=== PATIENT | female | born 1965 | race Hispanic/Latino ===

== ENCOUNTER 2017-10-30 10:50 | Outpatient (CLI) | payer BC | END 2017-10-30 10:51 | disposition home or self-care (01) | LOC: BICMAMMO 10:50 | PROVIDERS: ATTEND Family Medicine | DX: Z12.31 Encounter for screening mammogram for malignant neoplasm of breast (principal); Z78.0 Asymptomatic menopausal state; Z90.710 Acquired absence of both cervix and uterus | CPT/HCPCS: 77063; 77067 ==

== ENCOUNTER 2017-10-30 11:22 | Outpatient (CLI) | payer BC | END 2017-10-30 11:23 | disposition home or self-care (01) | LOC: BICRAD 11:22 | PROVIDERS: ATTEND Family Medicine | DX: M54.2 Cervicalgia (principal); R53.83 Other fatigue; M46.92 Unspecified inflammatory spondylopathy, cervical region | CPT/HCPCS: 71046; 72040 ==

== ENCOUNTER 2017-12-17 23:20 | Emergency (ER) | payer BC | END 2017-12-18 00:25 | disposition home or self-care (01) | LOC: ERS 23:20 | DX: S06.0X0A Concussion without loss of consciousness, initial encounter (principal); F32.9 Major depressive disorder, single episode, unspecified; I10 Essential (primary) hypertension; Z79.899 Other long term (current) drug therapy; W22.8XXA Striking against or struck by other objects, initial encounter | CPT/HCPCS: 99283 ==

== ENCOUNTER 2018-11-25 08:25 | Outpatient (CLI) | payer BC ==
--- NOTE | 2018-11-25 09:24 | MMO ---
Bilateral MAMMO Bilat Diag [facility]. CLINICAL HISTORY: Patient is 53 years old and is seen for diagnostic exam. The patient has no family history of breast cancer. The patient has no personal history of cancer. VIEWS: The views performed were: bilateral craniocaudal with tomosynthesis; bilateral mediolateral oblique with tomosynthesis; and bilateral mediolateral with tomosynthesis. FILMS COMPARED: The present examination has been compared to prior imaging studies performed at [facility] on 12/29/2014, 01/18/2016, 10/30/2017 and 11/25/2018. MAMMOGRAM FINDINGS: There are scattered fibroglandular densities. There is no radiographic abnormality in the region of the focal pain in the outer region of the left breast. No sonographic abnormality is seen in the region of pain. In the right breast, there are no suspicious masses, calcifications or areas of architectural distortion. IMPRESSION: THERE IS NO MAMMOGRAPHIC EVIDENCE OF MALIGNANCY. NO MAMMOGRAPHIC OR SONOGRAPHIC ABNORMALITIES ARE PRESENT TO CORRELATE WITH THE SITE OF PAIN. THE PATIENT WILL BE REFERRED BACK TO HER CLINICIAN FOR FURTHER CARE. BIOPSY SHOULD NOT BE PRECLUDED BY THE ABSCENCE OF IMAGING FINDINGS, IN THE SETTING OF CLINICAL CONCERN FOR MALIGNANCY. THE FINDINGS AND RECOMMENDATIONS WERE DISCUSSED WITH THE PATIENT PRIOR TO HER LEAVING THE CENTER. A ROUTINE FOLLOW-UP MAMMOGRAM IN 1 YEAR IS RECOMMENDED. THE RESULTS OF THIS EXAM WERE SENT TO THE PATIENT. ACR BI-RADS Category 1 - Negative MAMMOGRAPHY NOTE: 1. A negative mammogram report should not delay a biopsy if a dominant of clinically suspicious mass is present. 2. Approximately 10% to 15% of breast cancers are not detected by mammography. 3. Adenosis and dense breasts may obscure an underlying neoplasm. Reported by: BUCKY TURCIOS MD Electonically Signed: [id number]
--- NOTE | 2018-11-25 09:51 | ULT ---
LEFT BREAST DIAGNOSTIC ULTRASOUND: Date: 11/25/18 INDICATION: Pain in the outer aspect of the left breast. FINDINGS: Sonographic images were obtained of the outer aspect of the left breast in the 1 o'clock position thr ough the left 5 o'clock position. No sonographic abnormality seen. IMPRESSION: No sonographic abnormality seen within the region of the left breast. POS: OFF
== END 2018-11-25 08:26 | disposition home or self-care (01) ==
LOC: BICMAMMO 08:25
PROVIDERS: ATTEND Family Medicine
DX: N64.4 Mastodynia (principal)
CPT/HCPCS: 77066; G0279

== ENCOUNTER 2020-01-08 10:50 | Outpatient (CLI) | payer BC ==
--- NOTE | 2020-01-08 11:46 | MMO ---
Bilateral MAMMO Bilat Diag [facility]. CLINICAL HISTORY: Patient is 54 years old and is seen for diagnostic exam and pain in the left breast. The patient has no family history of breast cancer. The patient has no personal history of cancer. VIEWS: The views performed were: bilateral craniocaudal with tomosynthesis; bilateral mediolateral oblique with tomosynthesis; and bilateral mediolateral with tomosynthesis. FILMS COMPARED: The present examination has been compared to prior imaging studies performed at [facility] on 10/30/2017, 11/25/2018 and 01/08/2020. This study has been interpreted with the assistance of computer-aided detection. MAMMOGRAM FINDINGS: The breasts are heterogeneously dense, which could obscure a lesion on mammography. There are no suspicious masses, suspicious calcifications, or new areas of architectural distortion. IMPRESSION: THERE IS NO MAMMOGRAPHIC EVIDENCE OF MALIGNANCY. A ROUTINE FOLLOW-UP MAMMOGRAM IN 1 YEAR IS RECOMMENDED. THE RESULTS OF THIS EXAM WERE SENT TO THE PATIENT. ACR BI-RADS Category 1 - Negative MAMMOGRAPHY NOTE: 1. A negative mammogram report should not delay a biopsy if a dominant of clinically suspicious mass is present. 2. Approximately 10% to 15% of breast cancers are not detected by mammography. 3. Adenosis and dense breasts may obscure an underlying neoplasm. Reported by: SRIRAM DANIEL MD Electonically Signed: [id number]
--- NOTE | 2020-01-08 12:55 | RAD ---
EXAM: Chest PA and lateral: HISTORY: Chest pain. Left-sided chest pain. COMPARISON: 11/07/2019 FINDINGS: Heart: Normal cardiac silhouette Aorta: Unremarkable Pulmonary vessels: Normal Costophrenic angles: Costophrenic angles are clear. Lungs: No consolidation or masses. Pneumothorax: No pneumothorax Osseous structures: No osseous abnormalities IMPRESSION: No acute cardiopulmonary process.
--- NOTE | 2020-01-08 13:12 | BD ---
DEXA bone density examination HISTORY: 54-year-old postmenopausal female for screening COMPARISON: None FINDINGS: L1--bone mineral density 0.765 g/sq cm; T score -2.0 L2--bone mineral density 0.821 g/sq cm; T score -1.9 L3--bone mineral density 0.849 g/sq cm; T score -2.1 L4--bone mineral density 0.976 g/sq cm; T score -0.8 Total L1-L4--bone mineral density 0.857 g/sq cm; T score -1.7 Left femoral neck--bone mineral density0.697 g/sq cm; T score -1.4 Total proximal left femur--bone mineral density 0.971 g/sq cm ; T score 0.2 IMPRESSION: 1. Moderate osteopenia of the left femoral neck and lumbar spine. 2. The 10 year major osteoporotic risk fracture is 3.5% with 10 year hip fracture risk of 0.2%
== END 2020-01-08 10:51 | disposition home or self-care (01) ==
LOC: BICMAMMO 10:50
PROVIDERS: ATTEND Family Medicine
DX: R07.9 Chest pain, unspecified (principal); M85.89 Other specified disorders of bone density and structure, multiple sites; N95.1 Menopausal and female climacteric states; R92.8 Other abnormal and inconclusive findings on diagnostic imaging of breast
CPT/HCPCS: 71046; 77066; 77080; G0279

== ENCOUNTER 2021-01-16 09:13 | Outpatient (CLI) | payer BC | END 2021-01-16 09:14 | disposition home or self-care (01) | LOC: BICMAMMO 09:13 | PROVIDERS: ATTEND Family Medicine | DX: Z12.31 Encounter for screening mammogram for malignant neoplasm of breast (principal); M79.602 Pain in left arm; M25.512 Pain in left shoulder | CPT/HCPCS: 77063; 77067 ==